=== PATIENT | male | born 1940 | race Caucasian/White ===

== ENCOUNTER 2021-02-17 10:16 | Day surgery (SDC) | payer MEDICARE, BC ==
[~2021-02-17] VITALS: Ht 182.9 cm; Wt 85.7 kg
[2021-02-17 11:21] VITALS: BP 124/82; PULSE 61; TEMP 97.5
[2021-02-17] MEDS ORDERED: COZAAR 50MG50 MG/TAB PO (12:02)
[2021-02-17] MEDS ORDERED: FLOMAX 0.40.4 MG/CAP PO (12:02)
[2021-02-17] MEDS ORDERED: ZYLOPRIM 100MG100 MG PO (12:02)
[2021-02-17] MEDS ORDERED: NEURONTIN100 MG/CAP PO (12:03)
[2021-02-17] MEDS ORDERED: ZOLOFT 50MG50 MG PO (12:04)
[2021-02-17] MEDS ORDERED: TYLENOL 500MG500 MG PO (12:04)
[2021-02-17 14:56] VITALS: BP 139/66; PULSE 55; TEMP 98.2
--- NOTE | 2021-02-17 14:56 | NUR ---
Pt returns to [facility] from OR, report received from [employer] and RN. Pt awake and alert, VSS, denies pain. Call light in reach. [id number] called and given an updated.
[2021-02-17] MEDS ORDERED: NORCO 325 MG-51 TAB PO (14:57)
[2021-02-17 15:10] VITALS: BP 149/78; PULSE 55
--- NOTE | 2021-02-17 15:10 | NUR ---
Pt tolerates a muffin and diet pepsi well, denies nausea, mild discomfort noted, no orders and pt is okay waiting to get pain medication from pharmacy. VSS. Call light in reach.
[2021-02-17 15:25] VITALS: BP 157/78; PULSE 55
--- NOTE | 2021-02-17 15:25 | NUR ---
Pt up and nephrostomy tube drained and pt gets dressed after IV discontinued.
--- NOTE | 2021-02-17 15:55 | NUR ---
Pt doing well and taken out via wheelchair and discharge instructions provided to pt and his daughter. Understanding verbalized.
== END 2021-02-17 15:55 | disposition home or self-care (01) ==
LOC: SDCO 10:16
DX: C66.2 Malignant neoplasm of left ureter (principal); I10 Essential (primary) hypertension; G47.33 Obstructive sleep apnea (adult) (pediatric); M10.9 Gout, unspecified; G62.9 Polyneuropathy, unspecified; F32.9 Major depressive disorder, single episode, unspecified; Z85.528 Personal history of other malignant neoplasm of kidney; Z79.899 Other long term (current) drug therapy
CPT/HCPCS: C1788; J0690; J1644; J2405; J2704; J3010; J7030

== ENCOUNTER 2021-03-13 12:05 | Emergency (ER) | payer MEDICARE, BC ==
[~2021-03-13] VITALS: Ht 182.9 cm; Wt 84.5 kg
[~2021-03-13 12:05] MED LIST: COZAAR 50MG50 MG/TAB PO; FLOMAX 0.40.4 MG/CAP PO; NEURONTIN100 MG/CAP PO; NORCO 325 MG-51 TAB PO; TYLENOL 500MG500 MG PO; ZOLOFT 50MG50 MG PO; ZYLOPRIM 100MG100 MG PO
[2021-03-13 13:03] LABS: BASO % 0.3 % (0.0-2.0); EOS % 0.3 % (0-4.0); GRAN # 5.3 K/mm3 (1.4-6.5); GRAN % 81.1 % (42.2-75.2); LYMPH # 0.5 K/mm3 (1.2-3.4); MEAN CELL VOLUME 92 fl (80.0-100.0); MEAN CORPUSCULAR HGB CONC 33 g/dl (33.0-37.0); MEAN PLATELET VOLUME 10.1 fl (7.4-10.4); MONO # 0.7 K/mm3 (0.1-0.6); MONO % 10.8 % (1.7-9.3); PLATELET COUNT 182 K/mm3 (130-400); RED BLOOD COUNT 3.06 M/mm3 (4.20-5.60); REDCELL DISTRIBUTION WIDTH-CV 14.1 % (11.5-14.5)
[2021-03-13 13:05] LABS: HEMATOCRIT 28.1 % (42.0-52.0); HEMOGLOBIN 9.3 g/dl (13.5-18.0); MEAN CORPUSCULAR HEMOGLOBIN 30 pg (27.0-31.0)
[2021-03-13 13:19] LABS: BILIRUBIN,TOTAL 0.6 mg/dL (0.2-1.2); C-REACTIVE PROTEIN 8.67 mg/dL (0.00-0.50); CALCIUM 7.9 mg/dL (8.4-10.2); CREATININE, serum 2.61 mg/dL (0.72-1.25); POTASSIUM 4.6 mmol/L (3.5-4.5); TOTAL PROTEIN 6.7 gm/dL (6.2-8.1)
[2021-03-13 13:25] LABS: TROPONIN-I 0.02 ng/mL (0.00-0.033)
[2021-03-13 14:03] LABS: COLLECTION METHOD CLEAN CATCH
[2021-03-13 14:24] LABS: MUCOUS Present /lpf; PH 6 (5-8); SQUAMOUS EPITHELIAL 0-2 /hpf; URINE APPEARANCE Cloudy; URINE BACTERIA Many /hpf; URINE BILIRUBIN Negative (NEGATIVE); URINE BLOOD 2+ (NEGATIVE); URINE COLOR Yellow; URINE GLUCOSE Negative (NEGATIVE); URINE KETONE Negative (NEGATIVE); URINE LEUKOCYTE ESTERASE 3+ (NEGATIVE); URINE NITRATE Positive (NEGATIVE); URINE PROTEIN(semi-quant) Negative (NEGATIVE); URINE UROBILINOGEN Negative (NEGATIVE)
[2021-03-13 14:27] LABS: URINE RBC 0-2 /hpf
[2021-03-13] MEDS ORDERED: LASIX 40MG TABL40 MG PO (16:34)
[2021-03-13] MEDS ORDERED: ZOFRAN8 MG PO (16:35)
[2021-03-13 20:36] VITALS: BP 127/44; PULSE 86; TEMP 98.6
== END 2021-03-13 20:36 | disposition short-term general hospital (02) ==
LOC: COL.ER 12:05
PROVIDERS: Emergency Medicine
DX: A41.89 Other specified sepsis (principal); N39.0 Urinary tract infection, site not specified; I10 Essential (primary) hypertension; M10.9 Gout, unspecified; Z88.2 Allergy status to sulfonamides; Z79.899 Other long term (current) drug therapy
CPT/HCPCS: J0696; J1170; J2405; J7030; J7060; J7120